=== PATIENT | female | born 1975 | race Caucasian/White ===

== ENCOUNTER 2024-10-07 17:36 | Emergency (ER) | payer BC, SELFPAY ==
--- NOTE | ~2024-10-07 | XR_ITS ---
EXAMINATION: XR hand RT min 3V DATE: 10/07/2024 18:16 INDICATION: Right hand pain and inability to straighten the third and fourth digits post trauma TECHNIQUE: Posteroanterior, oblique and lateral views of the right hand were obtained. COMPARISON: None. FINDINGS: Subtle nondisplaced intra-articular avulsion fractures at the palmar aspect of the bases of the third and fourth middle phalanges. Alignment remains essentially anatomic. No other fractures identified. 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 IMPRESSION: 1. Nondisplaced intra-articular avulsion fractures at the palmar base of the third and fourth middle phalanges. Reviewed, dictated and finalized at location A. OOM HOST/HOSTESS IMPRESSION: 1. Nondisplaced intra-articular avulsion fractures at the palmar base of the th ird and fourth middle phalanges.
[2024-10-07 17:55] VITALS: BP 144/87; PULSE 88; RESP 18; TEMP 36.6; O2SAT 99
--- NOTE | 2024-10-07 17:59 | ED_ITS ---
HPI - General Adult General Chief complaint: Extremity Injury, Upper Stated complaint: Rt Hand Injury Time Seen by Provider: 10/07/24 18:00 Source: patient, RN notes reviewed and old records reviewed Mode of arrival: ambulatory Limitations: no limitations History of Present Illness HPI narrative: 48 year old female accompanied presents to [facility] care with complaints of tripping on porch step fell forward and smacked her right hand on door with fingers likely rolled under she reports at 10 am today. Patient is here visiting her sister from [place]. and injury occurred at home prior to arrival at sisters.Patient reports that she is unable to fully extend her fingers with swelling to fingers and some bruising of fingers noted. MD complaint: right hand injury Onset (ago): hour(s) (1000 today) Location: right and upper extremity (hand) Severity scale (1-10): 6 Treatments prior to arrival: NSAID and cold therapy Related Data Home Medications Medication Instructions Recorded Confirmed hydrochlorothiazide 12.5 mg tablet 12.5 mg PO DAILY 10/07/24 10/07/24 losartan 100 mg tablet 100 mg PO DAILY 10/07/24 10/07/24 metoprolol succinate 50 mg 50 mg PO DAILY 10/07/24 10/07/24 tablet,extended release 24 hr Allergies Allergy/AdvReac Type Severity Reaction Status Date / Time No Known Allergies Allergy Verified 10/07/24 20:12 Review of Systems Review of Systems: CONSTITUTIONAL: Denies fever, chills, or sweats. EYES: Denies visual changes, redness, or discharge. ENT: Denies rhinorrhea, congestion, sore throat, or otalgia. CARDIOVASCULAR: Denies chest pain, palpitations, or edema. RESPIRATORY: Denies cough or dyspnea. GASTROINTESTINAL: Denies abdominal pain, nausea, vomiting, or diarrhea. GENITOURINARY: Denies dysuria or hematuria. SKIN: Denies rash or itching. MUSCULOSKELETAL: Denies back pain, positive for right hand pain related to injury , or myalgia. NEUROLOGIC: Denies headache, numbness, or weakness. PSYCHIATRIC: Denies anxiety or depression. All systems reviewed & are unremarkable except as noted in HPI and below PMFSH Past Medical History Medical History (Updated 10/09/24 @ 20:23 by Tara Guevara NP) Abdominal mass removed sepsis and had kidney failure which resolved. Hypertension MVP (mitral valve prolapse) Surgical History Surgical History (Updated 10/09/24 @ 20:09 by Tara Guevara NP) H/O: hysterectomy total Social History Social History (Updated 10/09/24 @ 20:11 by Tara Guevara NP) Smoking status: Never smoker Alcohol intake: current Alcohol use details: rare social Substance use type: does not use Living arrangements: with family Gender identity (if verbalized by the patient): Female Comments At time of signature, agree with nursing past medical, surgical, social and family history. There is no relevant family history pertinent to the presenting complaint Exam Narrative: GENERAL: Well-appearing, well-nourished, and in no acute distress. HEAD: Normocephalic, atraumatic. EYES: PERRLA and EOMI. ENT: Nares clear, no rhinorrhea or epistaxis. Mucous membranes moist. NECK: Supple. no lymphadenopathy CHEST: Clear to auscultation. No respiratory distress.SAO2 99% on room air HEART: Regular rate and rhythm. No murmur heard. Normal peripheral pulses. ABDOMEN: Soft, nontender, nondistended, normal active bowel sounds. EXTREMITIES: Normal range of motion. No edema.Exception noted to right hand with swelling of fingers, decreased mobility and some bruising from injury. strong pulse right wrist, fingers pink, decreased mobility of fingers, sensation is intact. SKIN: Warm, dry, no rash. NEURO: No focal deficits. Alert and oriented x3. Course Course Emergency Course: Patient is aware of diagnosis, understands and agrees to treatment plan.? Anticipatory guidance given.? Patient agrees to follow-up as directed and is aware of reasons to seek care at the emergency department. Portions of this record may have been created with voice recognition software Level of Care: Express Care Visit Vital Signs Vital signs: Vital Signs Temperature 36.6 C 10/07/24 17:55 Pulse Rate 88 10/07/24 17:55 Respiratory Rate 18 10/07/24 17:55 Blood Pressure 144/87 H 10/07/24 17:55 Pulse Oximetry 99 10/07/24 17:55 Temperature 36.6 C 10/07/24 17:55 Pulse Rate 88 10/07/24 17:55 Respiratory Rate 18 10/07/24 17:55 Blood Pressure 144/87 H 10/07/24 17:55 Pulse Oximetry 99 10/07/24 17:55 Reviewed Procedures Orthopedic Splinting/Casting finger: Splinting/Casting Date: 10/07/24 Splinting/Casting Time: 19:15 Side: right Upper Extremity Injury Location: finger Upper Extremity Immobilizer: finger (other) (right 3rd and 4th fingers) Splint: prefabricated Pre-Formed: metal foam finger splint (to right middle and 4th finger) Pre-Procedure Neuro Vascular Exam: normal Post-Procedure Neuro Vascular Exam: normal Additional Comments: metal finger splints to right 3rd and 4th fingers padded and secured. Medical Decision Making MDM Narrative Medical decision making narrative: Exam findings and imaging show no acute concerns or changes; patient is non-tox ic appearing and is in no distress.? Patient is appropriate for outpatient treatment and follow-up Differential Diagnosis Differential Diagnosis: avulsion fractures of 3rd and 4th fingers middle phalanx, pain to fingers right hand, nondisplaced avulsion fractures right 3rd and 4th fingers Medical Records Medical records reviewed: Yes I reviewed the external patient's medical records. Vital Signs Vital Signs: Vital Signs Temperature 36.6 C 10/07/24 17:55 Pulse Rate 88 10/07/24 17:55 Respiratory Rate 18 10/07/24 17:55 Blood Pressure 144/87 H 10/07/24 17:55 Pulse Oximetry 99 10/07/24 17:55 Temperature 36.6 C 10/07/24 17:55 Pulse Rate 88 10/07/24 17:55 Respiratory Rate 18 10/07/24 17:55 Blood Pressure 144/87 H 10/07/24 17:55 Pulse Oximetry 99 10/07/24 17:55 Imaging Data Attestation: I personally reviewed and interpreted this imaging study as follows: My impression: non-displaced intra-articular avulsion fractures at the [place]am[place] base of 3rd and 4th middle phalanges Radiologist's impression: [address] [address] XRay Report Signed Patient: Khadijah Marquez : 1975 MR#: [id number] Age: 48 Acct:[id number] Loc: [facility] ADM Date: 10/07/24Attending Dr: Ordering Physician: Tara Guevara APRN Date of Service: 10/07/24 Procedure(s): XR hand RT min 3V Accession Number(s): [id number] cc: Tara Guevara Dionisio MEYERS; UNKNOWN,DOCTOR~ EXAMINATION: XR hand RT min 3V DATE: 10/07/2024 18:16 INDICATION: Right hand pain and inability to straighten the third and fourth digits post trauma TECHNIQUE: Posteroanterior, oblique and lateral views of the right hand were obtained. COMPARISON: None. FINDINGS: Subtle nondisplaced intra-articular avulsion fractures at the palmar aspect of the bases of the third and fourth middle phalanges. Alignment remains essentially anatomic. No other fractures identified. 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 IMPRESSION: 1. Nondisplaced intra-articular avulsion fractures at the palmar base of the third and fourth middle phalanges. Reviewed, dictated and finalized at location A. UE CARRIER Dictated By: Shayne Balderas MD 10/07/24 1848 Signed By: <Electronically signed by Shayne Balderas MD in OV> Critical Care Time Critical Care Time Critical Care Time: No Discharge Plan Discharge Clinical Impression: Avulsion fracture of middle phalanx of finger Qualifiers: Encounter type: initial encounter Fracture type: closed Qualified Code(s): S62.629A - Displaced fracture of middle phalanx of unspecified finger, initial encounter for closed fracture Closed avulsion fracture of middle phalanx of finger Qualifiers: Encounter type: initial encounter Qualified Code(s): S62.629A - Displaced fracture of middle phalanx of unspecified finger, initial encounter for closed fracture Patient Disposition: Home, Self-Care Condition: Stable Instructions: Antibiotic Form, Avulsion Fracture (ED) Additional Instructions: orthopedic splints as directed for comfort until seen by Ortho or hand surgeon Tylenol for lesser pain Ibuprofen regularly for the next 2-3 days for the inflammation Use the medication as provided for severe pain--caution each tablet contains 325 mg of Tylenol--the maximum dose of Tylenol is 4000 mg in 24 hours. This medication may cause constipation consider starting a laxative at this time Follow-up with orthopedic surgeon or hand surgeon, patient is [facility] Follow-up with PCP if further problems or concerns Ice to the area 20-30 minutes 4-6 times a day Elevate above heart If your symptoms persist, change or worsen significantly before you can contact your personal physician then please, without delay, go to the emergency department for further evaluation. Follow-up with PCP in 7-10 days or sooner if needed Follow up with PCP soon in regards to your blood pressure which is elevated above threshold for referral. Blood pressure above 120/80 may indicate pre- hypertension. disc and report given to patient Prescriptions: New hydrocodone-acetaminophen 5-325 mg tablet 1 tablet PO Q6H PRN (Reason: pain) Qty: 10 0RF No Action metoprolol succinate 50 mg tablet extended release 24 hr 50 mg PO DAILY losartan 100 mg tablet 100 mg PO DAILY hydrochlorothiazide 12.5 mg tablet 12.5 mg PO DAILY Follow-up/Referrals: UNKNOWN,DOCTOR [Primary Care Provider] - Time of Disposition: 19:17 Quality Ariella Coma Scale Eyes: Open Verbal: Oriented and Alert Motor: Follows Commands Ariella Coma Total Score: 15
== END 2024-10-07 19:20 | disposition home or self-care (01) ==
PROVIDERS: Emergency Provider Registered Nurse
DX: S62.652A Nondisplaced fracture of middle phalanx of right middle finger, initial encounter for closed fracture (principal); S62.654A Nondisplaced fracture of middle phalanx of right ring finger, initial encounter for closed fracture; W10.9XXA Fall (on) (from) unspecified stairs and steps, initial encounter; I10 Essential (primary) hypertension; I34.1 Nonrheumatic mitral (valve) prolapse
CPT/HCPCS: 29130 ×2; 73130; 99204; G0463